=== PATIENT | male | born 1955 | race Caucasian/White ===

== ENCOUNTER 2022-09-02 05:57 | Outpatient (CLI) | payer MEDICARE ==
[~2022-09-02] VITALS: Ht 195.6 cm; Wt 127.0 kg
== END 2022-09-07 13:02 | disposition home or self-care (01) ==
LOC: PREOP 05:57
PROVIDERS: ATTEND Internal Medicine
DX: Z01.818 Encounter for other preprocedural examination (principal)

== ENCOUNTER 2022-09-11 07:38 | Day surgery (SDC) | payer MEDICARE ==
[~2022-09-11] VITALS: Ht 195.6 cm; Wt 127.0 kg
[2022-09-11] MEDS ORDERED: LACTATED RINGERS 1,000 ML IV STA (07:59)
--- NOTE | 2022-09-11 07:59 | Pre-Op Note & Conscious Sedat ---
Pre-Operative Progress Note Date H&P Reviewed: Sep 11, 2022 Time H&P Reviewed: 07:58 History & Physical: H&P Reviewed, Patient Examed, No changes noted Pre-Op Diagnosis: screening Conscious Sedation Pre-Proced ASA Score 2 For ASA 3 and 4: Consider anesthesia and medical clearance. Also, for patients with a history of failed moderate sedation consider anesthesia. Airway Lungs Heart ASA score ASA 1: a normal healthy patient ASA 2: a patient with a mild systemic disease (mid diabetes, controlled hypertension, obesity ASA 3: a patient with a severe systemic disease that limits activity (angina, COPD, prior Myocardial infarction) ASA 4: a patient with an incapacitating disease that is a constant threat to life (CHF, renal failure) ASA 5: a moribund patient not expected to survive 24 hrs. (ruptured aneurysm) ASA 6: a declared brain- patient whose organs are being harvested. For emergent operations, add the letter E after the classification Mallampati Classification Grade 2 Sedation Plan Analgesia, Amnesia, Plan communicated to team members, Discussed options with patient/fam, Discussed risks with patient/fam The patient is an appropriate candidate to undergo the planned procedure, sedation, and anesthesia. The patient immediately re-assessed prior to indication. TENZIN SIMON MD Sep 11, 2022 07:59
[2022-09-11 08:00] VITALS: BP 153/87
[2022-09-11] MEDS ORDERED: PROPOFOL INJECTION 50 ML IV ONE (08:25)
--- NOTE | 2022-09-11 08:58 | Anesthesia-General Post-Op ---
MAC Patient Condition Mental Status/LOC: Same as Preop Cardiovascular: Satisfactory Nausea/Vomiting: Absent Respiratory: Satisfactory Pain: Controlled Complications: Absent Post Op Complications Complications None Follow Up Care/Instructions Patient Instructions None needed. Anesthesiology Discharge Order Discharge Order Patient is doing well, no complaints, stable vital signs, no apparent adverse anesthesia problems. No complications reported per nursing. MIRTHA BROWN DO Sep 11, 2022 08:58
--- NOTE | 2022-09-11 08:58 | Progress Note-Post Operative ---
Post-Procedure Note Physician (s)/Credit Support Specialist (s) Physician TENZIN SIMON MD Pre-Procedure Diagnosis Pre-Procedure Diagnosis: screening Post-Procedure Diagnosis Post-operative diagnosis: Prior to undergoing colonoscopy digital rectal evaluation was performed. Anal suture tone was normal and the perianal reflexes intact. Prostate is unremarkable digital inspection and no abnormalities noted on digital inspection anal canal or distal rectal vault. The colonoscope was inserted into the rectum and under direct physician advanced the cecum. The cecum identified by indication of the ileocecal valve and the cecal strap. Photographic documentation was obtained. Quality prep was fair. Findings: Multiple 4 to 8 mm sessile polyps were removed via hot forceps with noted minimal blood loss. Locations including the distal rectum the proximal sigmoid the mid sigmoid 1 polyp in the mid sigmoid colon had a inflammatory response. Polyps were also removed from the mid transverse proximal transverse mid a sending and proximal ascending. The patient had moderate to severe diverticular disease without evidence for acute diverticulitis involving the sigmoid and distal descending colon. Assessment multiple adenomatous appearing polyps in the 4 to 8 mm size range were removed today. As long as there is no evidence for dysplasia we will be advocating repeat surveillance colonoscopy in 1 year. Patient had moderate to severe diverticular disease without evidence of diverticulitis noted in the sigmoid colon and distal descending colon. Prostate was unremarkable additional inspection. TENZIN SIMON MD Sep 11, 2022 08:58
[2022-09-11 08:59] VITALS: BP 153/77
[2022-09-11 09:04] VITALS: BP 167/94
[2022-09-11 09:09] VITALS: BP 154/74
[2022-09-11 09:15] VITALS: BP 154/74
[2022-09-11 09:44] VITALS: BP 154/74
== END 2022-09-11 09:38 | disposition home or self-care (01) ==
LOC: ENDO 07:38
PROVIDERS: ATTEND Internal Medicine
DX: Z12.11 Encounter for screening for malignant neoplasm of colon (principal); D12.3 Benign neoplasm of transverse colon; D12.2 Benign neoplasm of ascending colon; D12.5 Benign neoplasm of sigmoid colon; K63.5 Polyp of colon; K62.1 Rectal polyp; K57.30 Diverticulosis of large intestine without perforation or abscess without bleeding; Z28.310 Unvaccinated for COVID-19; F17.210 Nicotine dependence, cigarettes, uncomplicated; K04.7 Periapical abscess without sinus; E66.9 Obesity, unspecified; Z68.33 Body mass index [BMI] 33.0-33.9, adult

== ENCOUNTER 2023-01-20 06:28 | Outpatient (CLI) | payer MEDICARE ==
[~2023-01-20] VITALS: Ht 195.6 cm; Wt 127.0 kg
== END 2023-01-21 08:32 ==
LOC: PREOP 06:28
PROVIDERS: ATTEND Internal Medicine
DX: Z01.818 Encounter for other preprocedural examination (principal)

== ENCOUNTER 2023-01-22 10:20 | Day surgery (SDC) | payer MEDICARE, MEDICAID ==
[~2023-01-22] VITALS: Ht 195.6 cm; Wt 127.0 kg
[2023-01-22] MEDS ORDERED: LACTATED RINGERS 1,000 ML IV STA (10:26)
[2023-01-22] MEDS ORDERED: HURRICAINE EXT TUBE (BENZOCAINE) XX PRN (10:30)
[2023-01-22 10:53] VITALS: BP 137/99
[2023-01-22] MEDS ORDERED: PROPOFOL INJECTION 50 ML IV ONE (11:19)
--- NOTE | 2023-01-22 11:36 | Pre-Op Note & Conscious Sedat ---
Pre-Operative Progress Note Date H&P Reviewed: Jan 22, 2023 Time H&P Reviewed: 11:36 History & Physical: H&P Reviewed, Patient Examed, No changes noted Pre-Op Diagnosis: dysphagia Moderate Sedation PreProcedure ASA Score 3 Airway Lungs Heart ASA score ASA 1: a normal healthy patient ASA 2: a patient with a mild systemic disease (mid diabetes, controlled hypertension, obesity ASA 3: a patient with a severe systemic disease that limits activity (angina, COPD, prior Myocardial infarction) ASA 4: a patient with an incapacitating disease that is a constant threat to life (CHF, renal failure) ASA 5: a moribund patient not expected to survive 24 hrs. (ruptured aneurysm) ASA 6: a declared brain- patient whose organs are being harvested. For emergent operations, add the letter E after the classification Mallampati Classification Grade 2 Sedation Plan Analgesia, Amnesia, Plan communicated to team members, Discussed options with patient/fam, Discussed risks with patient/fam The patient is an appropriate candidate to undergo the planned procedure, sedation, and anesthesia. The patient immediately re-assessed prior to indication. TENZIN SIMON MD Jan 22, 2023 11:36
[2023-01-22 12:05] VITALS: BP_SYST 118; BP_SYST 122; BP_DIAS 57; BP_DIAS 77
--- NOTE | 2023-01-22 12:08 | Anesthesia-General Post-Op ---
MAC Patient Condition Mental Status/LOC: Same as Preop Cardiovascular: Satisfactory Nausea/Vomiting: Absent Respiratory: Satisfactory Pain: Controlled Complications: Absent Post Op Complications Complications None Follow Up Care/Instructions Patient Instructions None needed. Anesthesiology Discharge Order Discharge Order Patient is doing well, no complaints, stable vital signs, no apparent adverse anesthesia problems. No complications reported per nursing. ADRY RON CRNA Jan 22, 2023 12:08
--- NOTE | 2023-01-22 12:13 | Progress Note-Post Operative ---
Post-Procedure Note Physician (s)/Motor Equipment Captain (s) Physician TENZIN SIMON MD Pre-Procedure Diagnosis Pre-Procedure Diagnosis: dysphagia Post-Procedure Diagnosis Post-operative diagnosis: The endoscope was inserted into the oral cavity and under direct visualization the esophagus is intubated. The endoscope is passed down the esophagus to stomach and second portion of the duodenum. Careful inspection was made as the endoscope was withdrawn. Findings: The posterior pharynx arytenoid aperture epiglottis and true and false vocal folds were unremarkable to gross inspection. The proximal mid esophagus is unremarkable. Columnar appearing mucosa extended and 2 or 3 fingerlike projections about a centimeter and a half from the GE junction suggesting underlying short segment Arndt's biopsies were obtained and submitted for histopathology. There is no evidence for erosive esophagitis rings webs strictures or extrinsic compression. The cardia of the stomach was unremarkable. Fundal antral erythema were present without evidence for ulceration biopsy was obtained and submitted for Helicobacter evaluation. The pylorus and pyloric channel were unremarkable. Duodenal erythema in a patchy nature was noted with 1 erosion and no ulcerations consistent with underlying duodenitis confined to the duodenal bulb. The second portion of the duodenum was unremarkable. A/P 1. 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 Gastritis involving the fundus and antrum was noted a biopsy was obtained and submitted for Helicobacter evaluation. There is evidence for duodenitis without evidence for ulceration involving the duodenal bulb. The second portion of the duodenum was unremarkable. Further recommendations will be pending histopathology. TENZIN SIMON MD Jan 22, 2023 12:13
[2023-01-22 12:30] VITALS: BP 113/74
== END 2023-01-22 12:40 | disposition home or self-care (01) ==
LOC: ENDO 10:20
PROVIDERS: ATTEND Internal Medicine
DX: K29.50 Unspecified chronic gastritis without bleeding (principal); B96.81 Helicobacter pylori [H. pylori] as the cause of diseases classified elsewhere; K22.70 Barrett's esophagus without dysplasia; K29.80 Duodenitis without bleeding; K21.9 Gastro-esophageal reflux disease without esophagitis; F17.210 Nicotine dependence, cigarettes, uncomplicated; Z28.310 Unvaccinated for COVID-19